=== PATIENT | female | born 1955 | race Caucasian/White ===

== ENCOUNTER → 2024-03-20 09:04 | Outpatient (REF) | payer BC, SELFPAY | LOC: HWRCS 09:04 | PROVIDERS: ATTENDING PHYSICIAN Internal Medicine Cardiovascular Disease; FAMILY PHYSICIAN Student in an Organized Health Care Education/Training Program | DX: I10 Essential (primary) hypertension (principal); R01.1 Cardiac murmur, unspecified; R00.0 Tachycardia, unspecified | CPT/HCPCS: 93306 ==

== ENCOUNTER → 2024-07-23 12:28 | Outpatient (REF) | payer MEDICARE, SELFPAY | LOC: WDC 12:28 | PROVIDERS: ATTENDING PHYSICIAN Obstetrics & Gynecology; FAMILY PHYSICIAN Student in an Organized Health Care Education/Training Program | DX: Z12.31 Encounter for screening mammogram for malignant neoplasm of breast (principal) | CPT/HCPCS: 77063; 77067 ==

== ENCOUNTER → 2024-12-07 12:47 | Outpatient (REF) | payer OTHER, SELFPAY | LOC: RAD 12:47 | PROVIDERS: ATTENDING PHYSICIAN Physician Assistant | DX: M79.662 Pain in left lower leg (principal) | CPT/HCPCS: 93971 ==

== ENCOUNTER → 2025-03-18 15:03 | Outpatient (REF) | payer OTHER, SELFPAY | LOC: RAD 15:03 | PROVIDERS: ATTENDING PHYSICIAN Internal Medicine | DX: I82.4Z2 Acute embolism and thrombosis of unspecified deep veins of left distal lower extremity (principal) | CPT/HCPCS: 93971 ==

== ENCOUNTER → 2025-07-24 12:53 | Outpatient (REF) | payer OTHER, SELFPAY | LOC: WDC 12:53 | PROVIDERS: ATTENDING PHYSICIAN Obstetrics & Gynecology; FAMILY PHYSICIAN Student in an Organized Health Care Education/Training Program | DX: Z12.31 Encounter for screening mammogram for malignant neoplasm of breast (principal) | CPT/HCPCS: 77063; 77067 ==